=== PATIENT | female | born 1985 | race Two or more races ===

== ENCOUNTER 2020-02-22 07:12 | Day surgery (SDC) | payer OTHER ==
[~2020-02-22 07:12] MED LIST: PRENA1 CHEW TA1.4 MG PO; SYNTHROID137 MCG PO
[2020-02-22] MEDS ORDERED: DOXYCYCLINE HY100 MG PO (13:35)
[2020-02-22] MEDS ORDERED: NAPROXEN SODIU500 M1 PO (13:36)
== END 2020-02-22 18:50 | disposition home or self-care (01) ==
LOC: CIR.AMB 07:12
PROVIDERS: ATTEND Obstetrics & Gynecology
DX: O03.4 Incomplete spontaneous abortion without complication (principal); Z20.828 Contact with and (suspected) exposure to other viral communicable diseases

== ENCOUNTER 2021-03-06 10:24 | Day surgery (SDC) | payer OTHER ==
[~2021-03-06 10:24] MED LIST changes: +DOXYCYCLINE HY100 MG PO; +NAPROXEN SODIU500 M1 PO; +SYNTHROID125 MCG PO
[2021-03-06] MEDS ORDERED: MORGIDOX100 MG PO (12:59)
[2021-03-06] MEDS ORDERED: IBU600 MG PO (13:00)
== END 2021-03-06 17:00 | disposition home or self-care (01) ==
LOC: CIR.AMB 10:24
PROVIDERS: ATTEND Obstetrics & Gynecology
DX: O02.1 Missed abortion (principal); Z20.822 Contact with and (suspected) exposure to COVID-19

== ENCOUNTER 2023-04-15 08:43 | Emergency (ER) | payer OTHER ==
[~2023-04-15] VITALS: Ht 162.6 cm; Wt 53.5 kg
[~2023-04-15 08:43] MED LIST changes: +IBU600 MG PO; +MORGIDOX100 MG PO
[2023-04-15 10:19] LABS: HEMATOCRIT 35.6 % (36.0-45.00); HEMOGLOBIN 12.1 g/dL (12.0-15.00); MEAN CELL VOLUME 84.8 fL (80.00-100.00); MEAN CORPUSCULAR HEMOGLOBIN 28.9 pg (27.00-32.0); MEAN CORPUSCULAR HGB CONC 34.1 g/dl (32.0-36.0); RED BLOOD COUNT 4.19 M/uL (4.00-6.00); RED CELL DISTRIBUTION WIDTH 12.6 % (11.5-14.5)
[2023-04-15 10:21] LABS: PLATELET COUNT 147 K/uL (150-450)
== END 2023-04-15 10:49 | disposition home or self-care (01) ==
LOC: ER 08:43
DX: J10.1 Influenza due to other identified influenza virus with other respiratory manifestations (principal)

== ENCOUNTER 2025-01-30 12:26 | Emergency (ER) | payer OTHER ==
[~2025-01-30] VITALS: Ht 162.6 cm; Wt 53.5 kg
[2025-01-30 15:08] LABS: BASO % 0.7 % (0.1-1.2); EOS # 0.08 (0.04-0.54); EOS % 0.9 % (0.7-7.0); LYMPH # 1.17 (1.18-3.74); LYMPH % 12.8 % (19.3-53.1); MEAN PLATELET VOLUME 12.60 fl (9.4-12.4); MONO # 1.16 (0.24-0.82); NEUT # 6.66 (1.56-6.13); NEUT % 72.6 % (34.0-71.1); RED CELL DISTRIBUTION WIDTH 12.2 % (11.6-14.4)
[2025-01-30 15:22] LABS: COVID-19 AG NEGATIVE (NEGATIVE)
[2025-01-30 15:24] LABS: MONO % 12.7 % (4.7-12.5)
[2025-01-30] MEDS ORDERED: GILTUSS COUGH-118 M1 PO (16:26)
[2025-01-30] MEDS ORDERED: ZITHROMAX TRI-500 MG PO (16:26)
[2025-01-30] MEDS ORDERED: ACETAMINOPHEN500 M1 PO (16:26)
== END 2025-01-30 17:39 | disposition home or self-care (01) ==
LOC: ER 12:26
PROVIDERS: Preventive Medicine Public Health & General Preventive Medicine
DX: J06.9 Acute upper respiratory infection, unspecified (principal); Z20.822 Contact with and (suspected) exposure to COVID-19